=== PATIENT | female | born 1945 | race Caucasian/White ===

== ENCOUNTER → 2024-11-16 07:35 | Outpatient (REF) | payer MEDICARE, OTHER, SELFPAY | LOC: RAD 07:35 | PROVIDERS: ATTENDING PHYSICIAN Obstetrics & Gynecology Gynecologic Oncology; FAMILY PHYSICIAN Internal Medicine | DX: C50.912 Malignant neoplasm of unspecified site of left female breast (principal); Z12.31 Encounter for screening mammogram for malignant neoplasm of breast; N93.9 Abnormal uterine and vaginal bleeding, unspecified; R19.09 Other intra-abdominal and pelvic swelling, mass and lump; Z12.4 Encounter for screening for malignant neoplasm of cervix | CPT/HCPCS: 71260; 74177; Q9967 ==

== ENCOUNTER → 2024-11-29 16:02 | Outpatient (REF) | payer MEDICARE, OTHER, SELFPAY | LOC: PAVMRI 16:02 | PROVIDERS: ATTENDING PHYSICIAN Obstetrics & Gynecology Gynecologic Oncology; FAMILY PHYSICIAN Internal Medicine | DX: C50.912 Malignant neoplasm of unspecified site of left female breast (principal); Z12.31 Encounter for screening mammogram for malignant neoplasm of breast; N93.9 Abnormal uterine and vaginal bleeding, unspecified; R19.09 Other intra-abdominal and pelvic swelling, mass and lump; Z12.4 Encounter for screening for malignant neoplasm of cervix | CPT/HCPCS: 72197; A9575 ==